=== PATIENT | male | born 1995 | race African-American/Black ===

== ENCOUNTER 2021-05-28 10:55 | Emergency (ER) | payer OTHER ==
[2021-05-28 11:08] VITALS: BP 127/78; PULSE 77; TEMP 98.6; BMI 36.6
== END 2021-05-28 12:13 | disposition home or self-care (01) ==
LOC: FER 10:55
DX: M54.6 Pain in thoracic spine (principal)
CPT/HCPCS: 71046-TC-FY; 99283-25

== ENCOUNTER 2022-11-04 08:07 | Emergency (ER) | payer OTHER ==
[2022-11-04 08:13] VITALS: BP 119/77; PULSE 65; RESP 18; TEMP 98.4; BMI 35.7
[2022-11-04 08:34] LABS: HEMATOCRIT 45.5 % (35.4-49); HEMOGLOBIN 15.1 G/dL (11.7-16.9); MCH 29.9 pg (25.7-33.7); MCHC 33.3 g/dl (32.0-35.9); MEAN CELL VOLUME 89.8 fl (80-96); MEAN PLT VOLUME 9.1 fl (7.5-11.1); RBC 5.07 10^6/uL (4.00-5.60); RDW 15.2 % (11.9-15.9); WHITE BLOOD COUNT 14.7 10^3/uL (4.0-10.8)
[2022-11-04 08:42] LABS: PLATELET ESTIMATE ADEQUATE
[2022-11-04 08:47] LABS: ALBUMIN 3.5 g/dl (3.4-5.0); BILIRUBIN,TOTAL 0.4 mg/dl (0.2-1); CALCIUM 8.7 mg/dl (8.5-10); CREATININE 0.9 mg/dl (0.55-1.3)
[2022-11-04] MEDS ORDERED: FAMOTIDINE 20 MG/50 ML IVPB 20 MG/50 ML MG IVPB ONE ×2 (09:09→09:15)
[2022-11-04] MEDS ORDERED: ACETAMINOPHEN 1000 MG/100 ML BAG IVPB ONE (09:09)
[2022-11-04] MEDS ORDERED: SODIUM CHLORIDE 0.9% 500 ML INFUS.BAG IV ONE (09:09)
[2022-11-04] MEDS ORDERED: MAG HYDROX/AL HYDROX/SIMETH 30 ML UNIT-DOSE CUP PO ONE (09:09)
[2022-11-04] MEDS ORDERED: ACETAMINOPHEN INJECTION 100 ML IVPB ONE (09:16)
[2022-11-04] MEDS ORDERED: MAG HYDROX/AL HYDROX/SIMETH 30 ML UNIT-DOSE CUP ONE (09:16)
== END 2022-11-04 10:44 | disposition home or self-care (01) ==
LOC: FER 08:07
PROC: 3E0333Z Introduction of Anti-inflammatory into Peripheral Vein, Percutaneous Approach (ICD-10-PCS; principal; 2022-11-04)
PROC: 3E033GC Introduction of Other Therapeutic Substance into Peripheral Vein, Percutaneous Approach (ICD-10-PCS; 2022-11-04)
DX: R07.9 Chest pain, unspecified (principal)
CPT/HCPCS: 36415; 80053; 84484; 85027; 93005; 99284-25

== ENCOUNTER 2022-11-16 14:09 | Emergency (ER) | payer OTHER ==
[2022-11-16 14:16] VITALS: TEMP 98.1; BMI 36.8
[2022-11-16] MEDS ORDERED: FAMOTIDINE 20 MG/50 ML IVPB 20 MG/50 ML MG IVPB ONE ×2 (14:45→15:29)
[2022-11-16] MEDS ORDERED: ACETAMINOPHEN 1000 MG/100 ML BAG IVPB ONE (14:45)
[2022-11-16] MEDS ORDERED: SUCRALFATE 1 GM TABLET (FP) PO ONE (14:45)
[2022-11-16] MEDS ORDERED: MAG HYDROX/AL HYDROX/SIMETH -MYLANTA- ORAL SUSPENSION PO ONE (14:45)
[2022-11-16] MEDS ORDERED: SUCRALFATE 1 GM TABLET (FP) ONE (15:28)
[2022-11-16] MEDS ORDERED: ACETAMINOPHEN INJECTION 100 ML IVPB ONE (15:28)
[2022-11-16] MEDS ORDERED: MAG HYDROX/AL HYDROX/SIMETH 30 ML UNIT-DOSE CUP ONE (15:29)
[2022-11-16 16:22] LABS: BASO % 0.5 % (0-2.0); EOS % 2.6 % (0-4.5); HEMATOCRIT 44.3 % (35.4-49); HEMOGLOBIN 14.4 GM/dL (11.7-16.9); LYMPH % 29.1 % (8-40); MCH 29.1 pg (25.7-33.7); MCHC 32.4 g/dl (32.0-35.9); MEAN CELL VOLUME 89.7 fl (80-96); MEAN PLT VOLUME 9.9 fl (7.5-11.1); MONO % 6.9 % (3.8-10.2); NEUT % 60.9 % (42.8-82.8); PLATELET COUNT 300 10^3/uL (134-434); RBC 4.94 M/mm3 (4.00-5.60); RDW 14.2 % (11.9-15.9); WHITE BLOOD COUNT 11.3 K/mm3 (4.0-10.0)
[2022-11-16 16:27] LABS: CALCIUM 9.2 mg/dL (8.5-10.1)
[2022-11-16 16:28] LABS: ALBUMIN 3.3 g/dl (3.4-5.0)
[2022-11-16 16:31] LABS: CREATININE 1.1 mg/dL (0.55-1.3)
[2022-11-16 16:32] LABS: TOT PROT 6.8 g/dl (6.4-8.2)
[2022-11-16 16:33] LABS: BILIRUBIN,TOTAL 0.2 mg/dL (0.2-1)
[2022-11-16 17:16] VITALS: BP 118/63; PULSE 67; RESP 17
== END 2022-11-16 18:36 | disposition home or self-care (01) ==
LOC: JER 14:09
PROC: 3E0333Z Introduction of Anti-inflammatory into Peripheral Vein, Percutaneous Approach (ICD-10-PCS; principal; 2022-11-16)
PROC: 3E033GC Introduction of Other Therapeutic Substance into Peripheral Vein, Percutaneous Approach (ICD-10-PCS; 2022-11-16)
DX: R10.10 Upper abdominal pain, unspecified (principal)
CPT/HCPCS: 0241U-QW; 36415; 71046-TC-FY; 80053; 83690; 84484; 85025; 93005; 93010; 99285-25

== ENCOUNTER 2024-05-27 08:38 | Emergency (ER) | payer BC, OTHER ==
[2024-05-27 09:45] VITALS: BP 141/89; PULSE 106; RESP 16; TEMP 99.5; BMI 33.3
[2024-05-27] MEDS ORDERED: ONDANSETRON *ODT* 4 MG TABLET ONE (09:49)
[2024-05-27] MEDS ORDERED: IBUPROFEN 400 MG TABLET (FP) PO ONE (09:49)
[2024-05-27] MEDS: IBUPROFEN 400 MG TABLET (FP) PO ONE (09:54)
[2024-05-27] MEDS: ONDANSETRON *ODT* 4 MG TABLET SL ONE (09:54)
== END 2024-05-27 10:22 | disposition home or self-care (01) ==
LOC: FER 08:38
DX: J02.9 Acute pharyngitis, unspecified (principal); R05.9 Cough, unspecified; B34.9 Viral infection, unspecified; Z20.822 Contact with and (suspected) exposure to COVID-19
CPT/HCPCS: 0241U-QW; 99283-25; Q0162

== ENCOUNTER 2024-07-24 16:17 | Emergency (ER) | payer BC ==
[2024-07-24 16:40] VITALS: BP 116/73; PULSE 92; RESP 18; TEMP 98.1; BMI 33.3
[2024-07-24] MEDS ORDERED: KETOROLAC TROMETHAMINE 15 MG/ML VIAL ONE (18:22)
[2024-07-24] MEDS: KETOROLAC TROMETHAMINE 15 MG/ML VIAL IM ONE (18:27)
== END 2024-07-24 19:21 | disposition home or self-care (01) ==
LOC: JERFT 16:17
PROC: 3E0233Z Introduction of Anti-inflammatory into Muscle, Percutaneous Approach (ICD-10-PCS; principal; 2024-07-24)
DX: S93.402A Sprain of unspecified ligament of left ankle, initial encounter (principal); X50.1XXA Overexertion from prolonged static or awkward postures, initial encounter
CPT/HCPCS: 73610-TC-LT-FY; 73630-TC-LT; 99284-25